=== PATIENT | female | born 1990 | race Caucasian/White ===

== ENCOUNTER 2016-07-14 16:38 | Emergency (ER) | payer OTHER ==
[~2016-07-14] VITALS: Ht 170.2 cm; Wt 64.0 kg
[2016-07-14 16:39] VITALS: BP 104/62
== END 2016-07-14 18:07 | disposition home or self-care (01) ==
LOC: ED 17:50
DX: S60.121A Contusion of right index finger with damage to nail, initial encounter (principal); Z98.890 Other specified postprocedural states; W23.0XXA Caught, crushed, jammed, or pinched between moving objects, initial encounter; Y93.89 Activity, other specified; Y99.8 Other external cause status; Y92.098 Other place in other non-institutional residence as the place of occurrence of the external cause
CPT/HCPCS: 11730